=== PATIENT | male | born 1950 | race Caucasian/White ===

== ENCOUNTER 2019-07-16 07:32 | Emergency (ER) | payer OTHER ==
[~2019-07-16] VITALS: Ht 180.3 cm; Wt 86.2 kg
[~2019-07-16 07:32] MED LIST: CEFADROXIL500 MG PO; LIPITOR20 MG PO; NORVASC2.5 MG PO; PERCOCET 5/321 UDTAB PO; XARELTO10 MG PO; ZANTAC150 MG PO; ZETIA10 MG PO
[2019-07-16] MEDS ORDERED: MUCINEX1200 MG PO (09:15)
[2019-07-16] MEDS ORDERED: CLARITIN10 M1 PO (09:15)
[2019-07-16] MEDS ORDERED: ZITHROMAX200 MG PO (09:15)
[2019-07-16] MEDS ORDERED: FLONASE16 GM NASAL (09:15)
== END 2019-07-16 09:56 | disposition home or self-care (01) ==
LOC: ER 07:32
DX: J06.9 Acute upper respiratory infection, unspecified (principal)

== ENCOUNTER 2019-10-08 18:09 | Emergency (ER) | payer OTHER ==
[~2019-10-08] VITALS: Ht 180.3 cm; Wt 84.8 kg
[~2019-10-08 18:09] MED LIST changes: +CLARITIN10 M1 PO; +FLONASE16 GM NASAL; +MUCINEX1200 MG PO; +ZITHROMAX200 MG PO
[2019-10-08] MEDS ORDERED: PLAVIX75 MG (18:26)
[2019-10-09] MEDS ORDERED: VASOTEC2.5 MG PO (05:03)
[2019-10-09] MEDS ORDERED: XOPENEX0.63 MG/3 IH (07:03)
[2019-10-09] MEDS ORDERED: ZYNCOF 20-400120 ML PO (07:03)
[2019-10-09] MEDS ORDERED: NASONEX17 GM NASAL (07:03)
== END 2019-10-08 20:30 | disposition home or self-care (01) ==
LOC: ER 18:09
DX: J06.9 Acute upper respiratory infection, unspecified (principal)

== ENCOUNTER 2019-10-09 04:49 | Emergency (ER) | payer OTHER ==
[~2019-10-09] VITALS: Ht 180.3 cm; Wt 84.8 kg
[~2019-10-09 04:49] MED LIST changes: +PLAVIX75 MG
[2019-10-09] MEDS ORDERED: VASOTEC2.5 MG PO (05:03)
[2019-10-09] MEDS ORDERED: XOPENEX0.63 MG/3 IH (07:03)
[2019-10-09] MEDS ORDERED: ZYNCOF 20-400120 ML PO (07:03)
[2019-10-09] MEDS ORDERED: NASONEX17 GM NASAL (07:03)
== END 2019-10-09 07:28 | disposition home or self-care (01) ==
LOC: ER 04:49
DX: J06.9 Acute upper respiratory infection, unspecified (principal)

== ENCOUNTER 2025-02-17 08:30 | Inpatient (IN) | payer OTHER ==
[~2025-02-17] VITALS: Ht 152.4 cm; Wt 78.5 kg
[~2025-02-17 08:30] MED LIST changes: +AMLODIPINE BESYL5 MG; +ELIQUIS2.5 MG PO; +INDAPAMIDE1.25 MG; +LORATADINE10 MG; +METOPROLOL SUCC25 MG; +NASONEX17 GM NASAL; +PAIN RELIEVER500 M2; +PERCOCET 5-3251 EACH PO; +ST. JOSEPH ASPI81 M2; +TOLTERODINE TART4 MG; +VASOTEC2.5 MG PO; +XOPENEX0.63 MG/3 IH; +ZYNCOF 20-400120 ML PO
[2025-02-17 08:51] LABS: PH,URINE 6.5 (5.0-8.0); URINE APPEARANCE Clear; URINE BILIRRUBIN Negative (NEGATIVE); URINE BLOOD Negative; URINE COLOR Yellow; URINE GLUCOSE Negative (NEGATIVE); URINE KETONE Negative (NEGATIVE); URINE LEUKOCYTE Negative; URINE NITRATE Negative; URINE PROTEIN Negative (NEGATIVE)
[2025-02-17 08:53] LABS: URINE RBC 9.1 uL (0.0-20.8); URINE WBC 6.1 uL (0.0-23.2)
[2025-02-17 08:58] LABS: URINE BACTERIA 2.4 uL (0.0-1933); URINE CAST 0.14 uL (0.0-1.40); URINE EPITHELIAL CELLS 0.9 uL (0.0-38.8)
[2025-02-17 08:59] LABS: HEMATOCRIT 38.2 % (39.0-48.0); HEMOGLOBIN 12.8 g/dL (13-16.00); MEAN CELL VOLUME 89.8 fL (80.0-100.00); MEAN CORPUSCULAR HGB CONC 33.4 g/dl (32.0-36.0); PLATELET COUNT 155 K/uL (150-450); RED BLOOD COUNT 4.25 M/uL (4.00-6.00); RED CELL DISTRIBUTION WIDTH 14.4 % (11.5-14.5)
[2025-02-17 09:19] LABS: INR 1.05; PARTIAL THROMBOPLASTIN TIME 27.5 SECONDS (22.0-34.0); PROTHROMBIN TIME 11.4 SECONDS (9.0-11.5)
[2025-02-17 09:58] LABS: ALBUMIN 3.8 gm/dL (3.4-5.0); BILIRUBIN TOTAL 0.57 mg/dL (0.3-1.2); CALCIUM 9.3 mg/dL (8.5-10.1); CHOL HDL RATIO 1.9 (0-5.0); CREATININE SERUM 1.11 mg/dL (0.70-1.30); GFR 64.58; GLOBULINA 3.6 G/DL (2.4-3.5); POTASSIUM 4.15 mEq/L (3.5-5.1); TOTAL PROTEIN 7.4 gm/dL (6.4-8.2)
[2025-02-17 11:23] LABS: RH POSITIVE
[2025-02-24] MEDS ORDERED: CEFAZOLIN SODIUM 1,000 MG VIAL ONE (10:41)
[2025-02-24] MEDS ORDERED: KETOROLAC TROMETHAMINE 60 MG VIAL IM ONE (12:33)
[2025-02-24] MEDS ORDERED: POVIDONE-IODINE 118 ML BOTT TOP ONE (12:33)
[2025-02-24] MEDS ORDERED: VANCOMYCIN HCL 1,000 MG VIAL ONE (13:33)
[2025-02-24] MEDS ORDERED: METHYLPREDNISOLONE ACETATE 80 MG/ML VIAL ONE (13:33)
[2025-02-24] MEDS ORDERED: MORPHINE SULFATE 4 MG/ML CARTRIDGE IV ONE (15:15)
[2025-02-24] MEDS ORDERED: TRANEXAMIC ACID 100MG/1ML (1000MG) AMPUL IV ONE (16:15)
[2025-02-24] MEDS ORDERED: MORPHINE SULFATE 4 MG/ML VIAL IV ONE (18:40)
[2025-02-24] MEDS ORDERED: ONDANSETRON HCL 2 MG/ML VIAL IV PRN (19:30)
[2025-02-24] MEDS ORDERED: SODIUM CHLORIDE 0.45 % 1,000 ML IV SCH (19:30)
[2025-02-24] MEDS ORDERED: MORPHINE SULFATE 4 MG/ML CARTRIDGE IV PRN (19:30)
[2025-02-24 20:15] VITALS: BP 149/83; O2SAT 97
[2025-02-24] MEDS ORDERED: CELECOXIB 200 MG CAPSULE PO SCH ×2 (21:00)
[2025-02-25] MEDS ORDERED: ACETAMINOPHEN 500 MG GEL..CAP PO SCH
[2025-02-25] MEDS ORDERED: GABAPENTIN 300 MG CAPSULE PO SCH (01:00)
[2025-02-25] MEDS ORDERED: CEFAZOLIN SODIUM 1,000 MG VIAL IV SCH (01:00)
[2025-02-25 01:22] VITALS: BP 125/70; O2SAT 95
[2025-02-25 08:39] VITALS: BP 138/69; O2SAT 99
[2025-02-25] MEDS ORDERED: SENNOSIDES 1 TAB TABLET PO SCH (09:00)
[2025-02-25] MEDS ORDERED: APIXABAN 2.5 MG TABLET PO SCH (09:00)
[2025-02-25 09:22] LABS: HEMATOCRIT 34.4 % (39.0-48.0); MEAN CELL VOLUME 88.1 fL (80.0-100.00); MEAN CORPUSCULAR HEMOGLOBIN 30.6 pg (27.00-32.0); MEAN CORPUSCULAR HGB CONC 34.7 g/dl (32.0-36.0); RED BLOOD COUNT 3.91 M/uL (4.00-6.00); RED CELL DISTRIBUTION WIDTH 14.8 % (11.5-14.5)
[2025-02-25 09:27] LABS: PLATELET COUNT 130 K/uL (150-450)
[2025-02-25 14:58] LABS: ALBUMIN 3.1 gm/dL (3.4-5.0); BILIRUBIN TOTAL 0.4 mg/dL (0.3-1.2); CALCIUM 8.2 mg/dL (8.5-10.1); CREATININE SERUM 1.06 mg/dL (0.70-1.30); GFR 68.11; GLOBULINA 3.5 G/DL (2.4-3.5); POTASSIUM 4.32 mEq/L (3.5-5.1); TOTAL PROTEIN 6.6 gm/dL (6.4-8.2)
[2025-02-25] MEDS ORDERED: SOD FERRIC GLUC COMPLX/SUCROSE 62.5 MG/5 ML AMPUL IV SCH (17:00)
[2025-02-25] MEDS ORDERED: Cyanocobalamin/Mecobalamin 1 TAB.SL SL SCH (17:00)
[2025-02-25] MEDS ORDERED: VITAMIN B COMPLEX 1 EACH PO SCH (17:00)
[2025-02-25 18:22] VITALS: BP 143/85
[2025-02-25] MEDS ORDERED: ATORVASTATIN CALCIUM 40 MG TABLET PO SCH (20:21)
[2025-02-25] MEDS ORDERED: ENALAPRIL MALEATE 10 MG TABLET PO SCH (20:23)
[2025-02-25] MEDS ORDERED: FAMOtidine 40 MG TABLET PO SCH (21:00)
[2025-02-25] MEDS ORDERED: FAMOtidine 40 MG TABLET PO ONE (21:20)
[2025-02-25] MEDS ORDERED: ATORVASTATIN CALCIUM 40 MG TABLET PO ONE (21:20)
[2025-02-25] MEDS ORDERED: ENALAPRIL MALEATE 10 MG TABLET ONE (21:20)
[2025-02-26 01:58] VITALS: BP 114/63
[2025-02-26 04:23] LABS: HEMOGLOBIN 11.8 g/dL (13-16.00); MEAN CELL VOLUME 87.7 fL (80.0-100.00); MEAN CORPUSCULAR HEMOGLOBIN 30.3 pg (27.00-32.0); MEAN CORPUSCULAR HGB CONC 34.6 g/dl (32.0-36.0); PLATELET COUNT 140 K/uL (150-450); RED BLOOD COUNT 3.88 M/uL (4.00-6.00); RED CELL DISTRIBUTION WIDTH 14.9 % (11.5-14.5)
[2025-02-26] MEDS ORDERED: METOPROLOL SUCCINATE 25 MG TAB.SR.24H PO SCH (09:00)
[2025-02-26] MEDS ORDERED: IRON FUM,PS/FOLIC ACID/VITC/B3 1 CAP CAPSULE PO SCH (09:00)
[2025-02-26] MEDS ORDERED: FOLIC ACID 1 MG TABLET PO SCH (09:00)
[2025-02-26] MEDS ORDERED: AMLODIPINE BESYLATE 2.5 MG TABLET PO SCH (09:00)
[2025-02-26 09:24] VITALS: BP 127/77; O2SAT 98
[2025-02-26] MEDS ORDERED: PERCOCET 5-3251 EACH PO (14:02)
[2025-02-26] MEDS ORDERED: DUI500 PO (14:02)
[2025-02-26] MEDS ORDERED: ELIQUIS2.5 MG PO (14:02)
== END 2025-02-26 17:17 | disposition home or self-care (01) | DRG 470 ==
LOC: MEDI 02-24 05:08 → O/R 02-24 05:08 → SURH 02-24 08:30 → MEDI 02-24 16:22 → SURH 02-24 20:45 → MEDI 02-26 17:17
PROVIDERS: Specialist; ADMIT Orthopaedic Surgery; ATTEND Orthopaedic Surgery
PROC: 0SRC0J9 Replacement of Right Knee Joint with Synthetic Substitute, Cemented, Open Approach (ICD-10-PCS; principal; 2025-02-24 20:45)
DX: M17.11 Unilateral primary osteoarthritis, right knee (principal); M22.11 Recurrent subluxation of patella, right knee; I10 Essential (primary) hypertension

== ENCOUNTER 2025-08-14 10:22 | Emergency (ER) | payer OTHER ==
[~2025-08-14] VITALS: Ht 180.3 cm; Wt 77.1 kg
[~2025-08-14 10:22] MED LIST changes: +DUI500 PO
[2025-08-14 12:45] LABS: BASO % 0.9 % (0.1-1.2); EOS # 0.65 (0.04-0.54); EOS % 8.5 % (0.7-7.0); LYMPH # 1.94 (1.18-3.74); LYMPH % 25.3 % (19.3-53.1); MEAN PLATELET VOLUME 11.60 fl (9.4-12.4); MONO # 0.71 (0.24-0.82); MONO % 9.3 % (4.7-12.5); NEUT # 4.28 (1.56-6.13); NEUT % 55.7 % (34.0-71.1); RED CELL DISTRIBUTION WIDTH 14.0 % (11.6-14.4)
[2025-08-14 13:14] LABS: INR 1.02
[2025-08-14 13:16] LABS: D DIMER 2.07 MG/L
[2025-08-14 13:21] LABS: ALT/SGPT 19.0 U/L (12-78); AST/SGOT 11.0 U/L (15-37); BILIRUBIN TOTAL 0.4 mg/dL (0.3-1.2); BUN CREA RATIO 24.0 (7.0-25.0); CREATININE SERUM 1.28 mg/dL (0.70-1.30); GFR 54.79; GLOBULINA 3.5 G/DL (2.4-3.5); GLUCOSE FASTING 96.0 mg/dL (65-100); OSMOLALITY SERUM 293.0 MOSM/KG (275-295)
== END 2025-08-14 17:09 | disposition home or self-care (01) ==
LOC: ER 10:22
PROVIDERS: General Practice
DX: R60.0 Localized edema (principal); I10 Essential (primary) hypertension